=== PATIENT | female | born 2000 | race Two or more races ===

== ENCOUNTER 2020-11-17 19:26 | Emergency (ER) | payer OTHER ==
[~2020-11-17] VITALS: Ht 160 cm; Wt 46.0 kg
[2020-11-17 19:59] VITALS: BP 129/75
== END 2020-11-17 20:48 | disposition left against medical advice (07) ==
LOC: ER 19:26
DX: R42 Dizziness and giddiness (principal); Z53.21 Procedure and treatment not carried out due to patient leaving prior to being seen by health care provider